=== PATIENT | female | born 1980 | race Caucasian/White ===

== ENCOUNTER 2018-06-04 03:07 | Emergency (ER) | payer OTHER, MEDICAID ==
[2018-06-04 04:05] VITALS: BP 116/67
[2018-06-04] MEDS ORDERED: NORCO 5/325 PO STA (05:29)
[2018-06-04] MEDS ORDERED: TRIPLE ANTIBIOTIC TP STA (05:29)
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
[2018-06-04] MEDS ORDERED: TRIPLE ANTIBIOTIC TP ONE (06:45)
== END 2018-06-04 07:04 | disposition home or self-care (01) ==
LOC: ED 03:07
DX: S80.02XA Contusion of left knee, initial encounter (principal); V49.9XXA Car occupant (driver) (passenger) injured in unspecified traffic accident, initial encounter; F17.200 Nicotine dependence, unspecified, uncomplicated; W22.12XA Striking against or struck by front passenger side automobile airbag, initial encounter; Y93.89 Activity, other specified; Y99.8 Other external cause status; Y92.410 Unspecified street and highway as the place of occurrence of the external cause
CPT/HCPCS: 71046; 93005; 93010; A6250